=== PATIENT | male | born 1985 | race Caucasian/White ===

== ENCOUNTER 2021-10-10 12:47 | Emergency (ER) | payer OTHER ==
[2021-10-10 14:18] LABS: BASOPHIL 0.7 % (0-2); EOSINOPHIL 0.9 % (0-5); HCT 47.2 % (42.0-52.0); HGB 16.4 g/dl (13.2-18.0); LYMPHOCYTE 27.6 % (15-48); MCH 30.3 pg (25.0-31.0); MCHC 34.7 g/dL (32.0-36.0); MCV 87.2 fL (78.0-100.0); MONOCYTE 9.1 % (0-12); MPV 10.3 fL (6.0-9.5); NEUTROPHIL 61.5 % (41-80); NRBC 0; PLT 207 K/uL (150-400); RBC 5.41 M/uL (4.70-6.00); RDW 11.4 % (11.5-14.0); WBC 4.6 K/uL (4.0-10.5)
[2021-10-10 14:22] LABS: INR 1.06 (0.9-1.2); PROTHROMBIN TIME 13.2 SECONDS (11.8-13.4); PTT 30.1 SECONDS (24.4-34.7)
[2021-10-10 14:30] LABS: BUN 24 mg/dL (7-18); CHLORIDE 101 mmol/L (98-107); CO2 (BICARBONATE) 28 mmol/L (21-32); CREATININE 1.02 mg/dL (0.67-1.17); GLUCOSE 114 mg/dL (74-106); POTASSIUM 4.1 mmol/L (3.5-5.1)
[2021-10-10 14:33] LABS: ALBUMIN 4.7 g/dL (3.4-5.0); ALKALINE PHOSHATASE 83 U/L (46-116); ALT 26 U/L (16-63); AST 19 U/L (15-37); BILIRUBIN - TOTAL 0.6 mg/dL (0.2-1.0); GLOBULIN (CALCULATION) 3.7 g/dL; TOTAL PROTEIN 8.4 g/dL (6.4-8.2)
== END 2021-10-10 19:52 | disposition home or self-care (01) ==
LOC: FER 12:47
PROVIDERS: Emergency Medicine
DX: R07.89 Other chest pain (principal); R55 Syncope and collapse
CPT/HCPCS: 36415; 71045; 80053; 84484; 85025; 85610; 85730; 93005; J1885; J7030